=== PATIENT | female | born 1990 | race African-American/Black ===

== ENCOUNTER 2019-04-20 20:59 | Emergency (ER) | payer MEDICARE, MEDICAID ==
[~2019-04-20] VITALS: Ht 172.7 cm; Wt 70.0 kg
[2019-04-20] MEDS ORDERED: DIAZEPAM 5 MG TABLET PO ONE (21:30)
[2019-04-20] MEDS ORDERED: KETOROLAC 30MG/ML VIAL IM ONE (23:00)
[2019-04-20 23:08] VITALS: BP 110/62
== END 2019-04-21 00:05 | disposition home or self-care (01) ==
LOC: ER 20:59
DX: F95.2 Tourette's disorder (principal); M54.2 Cervicalgia; F84.0 Autistic disorder; Z86.73 Personal history of transient ischemic attack (TIA), and cerebral infarction without residual deficits; Z88.0 Allergy status to penicillin
CPT/HCPCS: 96372; 99283; J1885

== ENCOUNTER 2019-05-27 18:19 | Emergency (ER) | payer MEDICARE, MEDICAID ==
[~2019-05-27] VITALS: Ht 167.6 cm; Wt 68.0 kg
[2019-05-27] MEDS ORDERED: SODIUM CHLORIDE 0.9% 1,000 ML IV ONE (18:57)
[2019-05-27] MEDS ORDERED: KETOROLAC 30MG/ML VIAL IV STA (18:57)
[2019-05-27 19:10] LABS: CLARITY URINE CLEAR (CLEAR); COLOR URINE YELLOW (YELLOW); KETONES URINE NEGATIVE (NEGATIVE); LEUKOCYTE ESTERASE URINE 2+ (NEGATIVE); NITRITE URINE NEGATIVE (NEGATIVE); OCCULT BLOOD URINE NEGATIVE (NEGATIVE); PH URINE 5.5 (4.5-8.0); PROTEIN URINE NEGATIVE (NEGATIVE); SPECIFIC GRAVITY URINE 1.023 (1.005-1.030); UROBILINOGEN URINE 0.2 E.U./dL (0.2-1.0)
[2019-05-27 19:21] LABS: EOSINOPHILS % 4.3 % (0.0-5.0); HEMATOCRIT. 36.2 % (36.0-48.0); HEMOGLOBIN. 11.7 g/dL (12.0-16.0); LYMPHOCYTES % 39.4 % (20.0-50.0); MEAN CORPUSCULAR HEMOGLOBIN 24.8 pg (28.0-32.0); MEAN CORPUSCULAR VOLUME 76.9 fL (81.0-99.0); MEAN PLATELET VOLUME 9.1 fl (7.4-10.4); MONOCYTES % 7.1 % (2.0-8.0); NEUTROPHILS % 48.2 % (40.0-76.0); PLATELET 190 x1000/uL (130-400); RED CELL DISTRIBUTION WIDTH 18.1 % (11.6-14.6)
[2019-05-27 19:25] LABS: CHLORIDE 108 mEq/L (98-107)
[2019-05-27 19:27] LABS: PROTHROMBIN TIME 10.1 sec (9.6-11.0)
[2019-05-27 19:29] LABS: ETHANOL BLOOD < 10 mg/dL
[2019-05-27 19:36] LABS: B-HCG QUANTITATIVE < 1 mIU/mL (<3)
[2019-05-27 20:05] LABS: HCG SCREEN NEGATIVE
[2019-05-27] MEDS ORDERED: LEVOFLOXACIN 500MG PREMIX 100 ML IV NR (20:23)
[2019-05-27 20:28] LABS: *AMPHETAMINES SCREEN URINE NEGATIVE (NEGATIVE); *BARBITURATES SCREEN URINE NEGATIVE (NEGATIVE); *COCAINE SCREEN URINE NEGATIVE (NEGATIVE)
[2019-05-27 20:29] LABS: CANNABINOID URINE SCREEN NEGATIVE (NEGATIVE); METHADONE URINE SCREEN NEGATIVE (NEGATIVE); PHENCYCLIDINE URINE SCREEN NEGATIVE (NEGATIVE)
[2019-05-27 20:31] LABS: *BENZODIAZEPINES SCREEN URINE PRESUMTIVE POSITIVE (NEGATIVE); OPIATES URINE SCREEN PRESUMTIVE POSITIVE (NEGATIVE)
[2019-05-27 21:58] VITALS: BP 127/71
== END 2019-05-27 22:32 | disposition home or self-care (01) ==
LOC: ER 18:19
DX: N30.00 Acute cystitis without hematuria (principal); N93.9 Abnormal uterine and vaginal bleeding, unspecified; F41.9 Anxiety disorder, unspecified; R45.83 Excessive crying of child, adolescent or adult; R06.4 Hyperventilation; R03.0 Elevated blood-pressure reading, without diagnosis of hypertension; F95.2 Tourette's disorder
CPT/HCPCS: 36415; 76830; 76856; 80053; 80305; 80320; 81003; 83690; 84702; 84703; 85025; 85610; 86850; 86900; 86901; 87086; 96365; 96375; 99284; J1885; J1956; J7030; G0480